=== PATIENT | female | born 1945 | race Two or more races ===

== ENCOUNTER → 2018-07-06 | Outpatient (CLI) | payer OTHER ==
[~2018-07-06] MED LIST: ACET500T68 PO; DOXY100C14 PO; PROAIR HFA8.5 GM INH
[2018-07-06 11:00] LABS: BILIRUBIN,URINE NEGATIVE (NEG); CLARITY,URINE CLEAR; COLOR,URINE YELLOW; NITRITE,URINE NEGATIVE (NEG); PROTEIN,URINE NEGATIVE (NEG-TRACE); UROBILINOGEN,URINE 0.2 mg/dL (0.2 mg/dL)
[2018-07-06 11:42] LABS: BACTERIA,URINE 0 /HPF (0-FEW); RBC,URINE 0 /HPF (0-2); SQUAMOUS EPITHELIAL CELL,UR FEW /LPF; WBC,URINE 0 /HPF (0-4)
== END | disposition home or self-care (01) ==
LOC: EDUNIT# 08:15 → SURGPAT 13:27
PROVIDERS: ATTEND Orthopaedic Surgery
DX: Z01.818 Encounter for other preprocedural examination (principal); M16.12 Unilateral primary osteoarthritis, left hip
CPT/HCPCS: 36415; 81001; 85651; 87641

== ENCOUNTER 2018-07-21 06:44 | Inpatient (IN) | payer OTHER ==
[~2018-07-21] VITALS: Ht 154.9 cm; Wt 46.7 kg
[~2018-07-21 06:44] MED LIST changes: +ACETAMINOPHEN 500 MG TABLET PO PRN; +KETOROLAC 30MG VIAL 30 MG, ROPIVacaine 0.5% PF 60 ML, EPINEPHrine 0.5 MG in IV NORMAL S... INT ART ONE; +TRANEXAMIC ACID 1,000 MG in IV NS 50ML -- 1ST BAG INJ ONE
[2018-07-21] MEDS ORDERED: fentaNYL PF VIAL 100 MCG/2 ML VIAL IV PRN ×3 (07:00→14:30)
[2018-07-21] MEDS ORDERED: ceFAZolin 2GM PREMIX 2 GM/50 ML BAG IV ONE (07:00)
[2018-07-21] MEDS ORDERED: LIDOCAINE 1% PF 2 ML VIAL. ID PRN (07:00)
[2018-07-21] MEDS ORDERED: ONDANSETRON PF 4 MG/2 ML VIAL. IV PRN (07:00)
[2018-07-21] MEDS ORDERED: PROCHLORPERAZINE 10 MG/2 ML VIAL. IV PRN ×2 (07:00→14:30)
[2018-07-21] MEDS ORDERED: CELECOXIB 100 MG CAPSULE. ONE (07:03)
[2018-07-21] MEDS ORDERED: CELE200C PO (07:21)
[2018-07-21] MEDS ORDERED: WARF-31 PO (07:21)
[2018-07-21] MEDS: IV RINGERS,LACTATED 1000ML 1,000 ML IV SCH ×2 (07:38→14:23)
[2018-07-21] MEDS ORDERED: TRANEXAMIC ACID 1,000 MG in IV NS 50ML -- 2ND BAG INJ ONE (08:00)
[2018-07-21] MEDS ORDERED: PROPOFOL 20 ML IV ONE (09:10)
[2018-07-21] MEDS ORDERED: fentaNYL PF VIAL 100 MCG/2 ML VIAL ONE ×2 (09:10→12:59)
[2018-07-21] MEDS ORDERED: DEXAMETHASONE SOD PHOS 20 MG/5 ML VIAL. ONE (09:10)
[2018-07-21] MEDS ORDERED: ROCURONIUM 50 MG/5 ML VIAL. ONE (09:10)
[2018-07-21] MEDS ORDERED: ONDANSETRON PF 4 MG/2 ML VIAL. ONE (09:10)
[2018-07-21] MEDS ORDERED: FAMOTIDINE 20 MG/2 ML VIAL ONE (09:10)
[2018-07-21] MEDS ORDERED: LIDOCAINE 2% PF Vial for OR 5 ML VIAL. ONE (09:10)
[2018-07-21] MEDS ORDERED: EPINEPHRINE INT ART ONE ×2 (11:00)
[2018-07-21] MEDS ORDERED: [UNRECOGNIZED DRUG - OTHER] INT ART ONE (11:00)
[2018-07-21] MEDS ORDERED: [UNRECOGNIZED DRUG - OTHER] INT ART ONE (11:00)
[2018-07-21] MEDS ORDERED: ROPIVACAINE 0.5% INT ART ONE ×2 (11:00)
[2018-07-21] MEDS ORDERED: KETOROLAC INT ART ONE ×2 (11:00)
[2018-07-21] MEDS ORDERED: 0.9 % SODIUM CHLORIDE 20 ML VIAL. IJ ONE (11:52)
[2018-07-21] MEDS ORDERED: ceFAZolin SODIUM 1 GM VIAL ONE (11:52)
[2018-07-21] MEDS ORDERED: ePHEDrine PF IN SALINE 50 MG/5 ML DISP.SYRIN IV ONE (12:03)
[2018-07-21] MEDS ORDERED: DESFLURANE > 120 MINUTES IH ONE (13:20)
[2018-07-21] MEDS ORDERED: NEOSTIGMINE METHYLSULFATE 5 MG/5 ML SYRINGE. ONE (13:20)
[2018-07-21] MEDS ORDERED: GLYCOPYRROLATE 1 MG/5 ML VIAL. ONE (13:21)
[2018-07-21] MEDS: fentaNYL PF VIAL 100 MCG/2 ML VIAL IV PRN ×4 (14:22→15:59)
[2018-07-21] MEDS ORDERED: ACETAMINOPHEN 325 MG TABLET. PO PRN (14:30)
[2018-07-21] MEDS ORDERED: CALCIUM CARBONATE 500 MG TAB.CHEW PO PRN (14:30)
[2018-07-21] MEDS ORDERED: ZOLPIDEM 5 MG TABLET. PO PRN (14:30)
[2018-07-21] MEDS ORDERED: MORPHINE SULFATE 4 MG/ML VIAL. IV PRN (14:30)
[2018-07-21] MEDS ORDERED: oxyCODONE/APAP 7.5/325 1 TAB TABLET PO PRN (14:30)
[2018-07-21] MEDS ORDERED: HYDROcodone/APAP 10/325 1 TAB TABLET PO PRN (14:30)
[2018-07-21] MEDS ORDERED: HYDROcodone/APAP 7.5/325MG 1 TAB TABLET PO PRN (14:30)
[2018-07-21] MEDS ORDERED: 0.9 % SODIUM CHLORIDE 10 ML DISP.SYRIN. IV PRN (14:30)
[2018-07-21] MEDS ORDERED: DEXTROSE 50% 25 GM / 50ML DISP.SYRIN. IV PRN (14:30)
[2018-07-21] MEDS ORDERED: traMADol 50 MG TABLET PO PRN (14:30)
[2018-07-21] MEDS ORDERED: MORPHINE SULFATE 2 MG/ML VIAL. IV PRN (14:30)
--- NOTE | 2018-07-21 14:50 | PDOC4 ---
Operative Note Operative Note Date of surgery: 07/21/2018 Preoperative diagnosis: Degenerative joint disease left hip Postoperative diagnosis: Same Operative procedure: Left total hip arthroplasty anterior approach Surgeon: Amna Assist: Agnes Anesthesia: Gen. Estimated blood loss: 150 mL Complications: None Specimens: Femoral head to pathology Operative indications: Patient is a 73-year-old female that was injured at work and underwent extensive nonoperative treatment including injection to her left hip joint which gave her almost complete relief for a limited period of time over a few weeks. He continued to have significant pain despite physical therapy activity modification and other nonoperative treatment. She now presents for operative evaluation and treatment following insurance approval for the recommended total hip arthroplasty. I had reviewed with her surgical plans and differences in approach as well as the possible complications of infection nerve or blood vessel damage leg length inequality instability premature wear or loosening medical or other anesthetic complications among others all her questions were answered consent was obtained and she agrees to proceed with operative evaluation and treatment Operative text: Patient was identified procedure verified patient placed in the supine position on the Beaman fracture table and after adequate amounts of general anesthesia were administered both legs were placed in traction boots and the left hip was prepped and draped in standard sterile fashion. After timeout was performed patient procedure identified and verified and incision was made just distal and lateral to the anterior superior iliac spine along the course of the tensor fascia issac muscle. Tensor fascia issac was brought laterally rectus femoris medially and circumflex vessels were coagulated with the aqua Mantis device. Hip capsule was exposed and split in a T fashion. Femoral neck cut was made under fluoroscopic guidance with a napkin ring of bone to use removal of the femoral head which was sized at a size 46. Reaming was carried out after removal of the contents of the fovea and debridement of any residual labrum with 46,48 and 50 reamers under fluoroscopic guidance the rim was touched lightly with a size 51 and a size 52 [employer] cluster hole hemispherical cup was seated in place under fluoroscopic guidance a single superior screw was placed and a standard 36 mm liner impacted into place. Femur was then placed in external rotation extension and adduction and femoral canal was prepared with successive size broaching up to a size 2 which provided excellent fit and stability. Trial fitting was carried out with a standard neck and +4 to restore leg length and stability as well as maintaining offset. All were checked under fluoroscopic guidance and excellent range of motion with good stability obtained throughout. Trial components were removed thorough irrigation carried out normal saline solution and a SMF standard offset size 2 stem was impacted into place with a +4 cobalt-chromium 36 mm head. Again equivalent stability leg length and offset were obtained fluoroscopically. Thorough irrigation again carried out normal saline solution hip capsule was repaired with #2 Ethibond suture Hemovac drain and pain catheter were placed in catheter mixture was injected throughout the subcutaneous area and hip joint capsule. Fascial closure carried out with #1 PDS strata fix suture subcutaneous closure with buried Vicryl suture skin closure with 3-0 Monocryl strata fix a bobby drain was placed patient was returned to recovery room in stable condition having tolerated procedure well. Agnes wayne was present for the procedure and assisted in prepping draping retraction and skin closure ASCENCION AMADOR MD Jul 21, 2018 14:50
--- NOTE | 2018-07-21 15:02 | RAD ---
Portable pelvis, 07/21/2018: HISTORY: Postop hip surgery A left total hip prosthesis is in place in satisfactory position. A surgical drain overlies the operative site. Old surgical clips are projected over the left side of the pelvis. There is no evidence of a retained surgical instrument, needle or radiopaque sponge on this single view. Electronically signed by: Jose Noble MD (07/21/2018 2:59 PM) [facility]
[2018-07-21] MEDS ORDERED: WARFARIN 7.5 MG TABLET. PO ONE (16:00)
[2018-07-21 16:15] VITALS: BP 102/48
[2018-07-21 16:30] VITALS: BP 102/56
[2018-07-21 16:45] VITALS: BP 110/60
[2018-07-21] MEDS ORDERED: ALBUTEROL SULFATE 2.5 MG/3 ML NEBU. NEB PRN (17:00)
[2018-07-21] MEDS ORDERED: NON FORMULARY ITEM (Albuterol Sulfate (Proair Hfa Inhaler) 1 PUFF) INH PRN (17:00)
[2018-07-21 17:15] VITALS: BP 112/59
[2018-07-21] MEDS: FERROUS SULFATE 325 MG TABLET. PO SCH (17:25)
[2018-07-21] MEDS: NICOTINE 21MG PATCH. TD SCH (17:26)
[2018-07-21] MEDS: KETOROLAC TROMETHAMINE 10 MG TABLET PO SCH ×2 (17:26→23:36)
[2018-07-21] MEDS: ceFAZolin SODIUM 1 GM in IV DEXTROSE 5% 50 ML IV SCH ×2 (17:27→23:36)
[2018-07-21] MEDS: IV DEXTROSE 5 %-0.45 % NACL 1,000 ML IV SCH (17:33)
[2018-07-21] MEDS: KETOROLAC 30MG VIAL 30 MG, BUPIVACAINE MPF 0.25% 20 ML, EPINEPHrine 0.5 MG in TOTAL VOL... INT ART SCH (18:09)
[2018-07-21 18:14] VITALS: BP 119/64
[2018-07-21] MEDS: oxyCODONE/APAP 5/325 1 TAB TABLET PO PRN (20:41)
[2018-07-21 23:00] VITALS: BP 126/71
[2018-07-22] MEDS: IV DEXTROSE 5 %-0.45 % NACL 1,000 ML IV SCH ×2 (02:00→11:04)
[2018-07-22 03:00] VITALS: BP 124/58
[2018-07-22 04:50] LABS: HEMATOCRIT 32.3 % (36.0-47.0); HEMOGLOBIN 11.2 g/dL (12.0-15.5); PROTHROMBIN TIME PATIENT 17.6 SEC (11.7-14.0)
[2018-07-22] MEDS: KETOROLAC 30MG VIAL 30 MG, BUPIVACAINE MPF 0.25% 20 ML, EPINEPHrine 0.5 MG in TOTAL VOL... INT ART SCH (05:30)
[2018-07-22] MEDS: ceFAZolin SODIUM 1 GM in IV DEXTROSE 5% 50 ML IV SCH (05:31)
[2018-07-22] MEDS: KETOROLAC TROMETHAMINE 10 MG TABLET PO SCH ×3 (05:31→18:08)
[2018-07-22] MEDS ORDERED: MAGNESIUM HYDROXIDE 2,400 MG/30 ML ORAL.SUSP. PO PRN (06:00)
[2018-07-22 06:30] VITALS: BP 100/51
--- NOTE | 2018-07-22 07:24 | PDOC ---
ORTHO PROGRESS NOTES Subjective Patient with no new complaints this morning. Post-op Day: 1 Procedure Left Total hip Arthroplasty Anterior Approach Vitals Vital Signs Date Time Temp Pulse Resp B/P (MAP) Pulse Ox O2 Delivery O2 Flow Rate FiO2 07/22/18 06:30 97.6 49 20 100/51 (67) 100 Nasal Cannula 2.0 97.6 Labs Laboratory Tests Test 07/21/18 07:15 07/22/18 03:55 Prothrombin Time 13.0 SEC (11.7-14.0) 17.6 SEC (11.7-14.0) Prothromb Time International Ratio 1.0 (0.8-1.1) 1.5 (0.8-1.1) Activated Partial Thromboplast Time 28 SEC (24-38) Hemoglobin 11.2 g/dL (12.0-15.5) Hematocrit 32.3 % (36.0-47.0) Mean Corpuscular Hemoglobin Concent 35 g/dL (31-37) Laboratory Tests Test 07/22/18 03:55 Hemoglobin 11.2 g/dL (12.0-15.5) Hematocrit 32.3 % (36.0-47.0) Mean Corpuscular Hemoglobin Concent 35 g/dL (31-37) Prothrombin Time 17.6 SEC (11.7-14.0) Prothromb Time International Ratio 1.5 (0.8-1.1) Assessment and Plan Patient on commode. N/V intact distally dressing dry and intact begin PT today KEITH QUEEN APRN Jul 22, 2018 07:24
[2018-07-22] MEDS: FERROUS SULFATE 325 MG TABLET. PO SCH ×2 (07:53→18:07)
[2018-07-22] MEDS: SENNOSIDES/DOCUSATE 8.6/50MG TABLET. PO SCH (07:53)
[2018-07-22] MEDS: oxyCODONE/APAP 5/325 1 TAB TABLET PO PRN (07:53)
[2018-07-22] MEDS: MULTIVITAMIN with MINERAL TABLET. PO SCH (07:53)
[2018-07-22] MEDS: ONDANSETRON ODT 4 MG TAB.RAPDIS. PO PRN (08:36)
[2018-07-22] MEDS: NICOTINE 21MG PATCH. TD SCH (12:48)
[2018-07-22] MEDS ORDERED: WARFARIN 1 MG TABLET. PO ONE (16:00)
[2018-07-22] MEDS ORDERED: BISACODYL 10 MG SUPP.RECT. PR PRN (16:00)
[2018-07-22 18:24] VITALS: BP 111/49
[2018-07-22] MEDS: traMADol 50 MG TABLET PO PRN (20:24)
--- NOTE | 2018-07-22 21:40 | PDOC ---
PROGRESS NOTES Subjective Subjective Problems overnight: Severe nausea this morning now better controlled, hip is sore and weak but getting around reasonably well Objective Vital Signs Vital Signs Date Time Temp Pulse Resp B/P (MAP) Pulse Ox O2 Delivery O2 Flow Rate FiO2 07/22/18 21:33 Room Air 07/22/18 20:24 20 95 07/22/18 18:24 97.6 68 111/49 (69) 97.6 07/22/18 06:30 2.0 Physical Exam Dressing clean dry intact leg lengths equal distal Minesh status intact Labs Laboratory Tests Test 07/21/18 07:15 07/22/18 03:55 Prothrombin Time 13.0 SEC (11.7-14.0) 17.6 SEC (11.7-14.0) Prothromb Time International Ratio 1.0 (0.8-1.1) 1.5 (0.8-1.1) Activated Partial Thromboplast Time 28 SEC (24-38) Hemoglobin 11.2 g/dL (12.0-15.5) Hematocrit 32.3 % (36.0-47.0) Mean Corpuscular Hemoglobin Concent 35 g/dL (31-37) Laboratory Tests Test 07/22/18 03:55 Hemoglobin 11.2 g/dL (12.0-15.5) Hematocrit 32.3 % (36.0-47.0) Mean Corpuscular Hemoglobin Concent 35 g/dL (31-37) Prothrombin Time 17.6 SEC (11.7-14.0) Prothromb Time International Ratio 1.5 (0.8-1.1) Assessment Assessment POD# [1], S/P [left total hip arthroplasty] Plan Plan of Care Zofran by mouth for nausea, continue mobilize weightbearing as tolerated no hip precautions Coumadin anticoagulation ASCENCION AMADOR MD Jul 22, 2018 21:40
[2018-07-23] MEDS: KETOROLAC TROMETHAMINE 10 MG TABLET PO SCH ×5 (00:11→23:52)
[2018-07-23 05:35] LABS: HEMATOCRIT 31.8 % (36.0-47.0); HEMOGLOBIN 10.9 g/dL (12.0-15.5)
[2018-07-23 05:45] LABS: PROTHROMBIN TIME PATIENT 25.5 SEC (11.7-14.0)
[2018-07-23 05:59] VITALS: BP 108/53
[2018-07-23] MEDS: MULTIVITAMIN with MINERAL TABLET. PO SCH (09:14)
[2018-07-23] MEDS: FERROUS SULFATE 325 MG TABLET. PO SCH ×2 (09:14→17:33)
[2018-07-23] MEDS: SENNOSIDES/DOCUSATE 8.6/50MG TABLET. PO SCH (09:14)
[2018-07-23] MEDS: NICOTINE 21MG PATCH. TD SCH (09:15)
[2018-07-23] MEDS: traMADol 50 MG TABLET PO PRN (09:21)
--- NOTE | 2018-07-23 11:55 | PDOC ---
PROGRESS NOTES Subjective Subjective Problems overnight: Nausea and now adequately resolved, doing well with physical therapy aside from expected hip flexor weakness Objective Vital Signs Vital Signs Date Time Temp Pulse Resp B/P (MAP) Pulse Ox O2 Delivery O2 Flow Rate FiO2 07/23/18 09:21 Room Air 07/23/18 05:59 98.0 70 16 108/53 (71) 93 98.0 07/22/18 06:30 2.0 Physical Exam On exam dressing clean dry intact leg lengths equal distal neurovascular status intact hip flexors are weak Labs Laboratory Tests Test 07/22/18 03:55 07/23/18 05:00 Hemoglobin 11.2 g/dL (12.0-15.5) 10.9 g/dL (12.0-15.5) Hematocrit 32.3 % (36.0-47.0) 31.8 % (36.0-47.0) Mean Corpuscular Hemoglobin Concent 35 g/dL (31-37) 34 g/dL (31-37) Prothrombin Time 17.6 SEC (11.7-14.0) 25.5 SEC (11.7-14.0) Prothromb Time International Ratio 1.5 (0.8-1.1) 2.4 (0.8-1.1) Laboratory Tests Test 07/23/18 05:00 Hemoglobin 10.9 g/dL (12.0-15.5) Hematocrit 31.8 % (36.0-47.0) Mean Corpuscular Hemoglobin Concent 34 g/dL (31-37) Prothrombin Time 25.5 SEC (11.7-14.0) Prothromb Time International Ratio 2.4 (0.8-1.1) Assessment Assessment POD# [2], S/P [left total hip arthroplasty] Plan Plan of Care Spoke with Worker's Compensation insurance claims analyst Georgie Albright [phone] ( [email or web address]) particularly about physical therapy closer to the patient for their convenience and [facility] has been tentatively evaluated phone number [phone] for outpatient physical therapy on discharge Continue PT weightbearing as tolerated no hip precautions due to anterior approach Likely DC tomorrow with outpatient physical therapy as above ASCENCION AMADOR MD Jul 23, 2018 11:55
[2018-07-23] MEDS: ONDANSETRON ODT 4 MG TAB.RAPDIS. PO PRN (12:49)
[2018-07-23 18:05] VITALS: BP 118/60
[2018-07-24] MEDS: traMADol 50 MG TABLET PO PRN (02:26)
[2018-07-24 04:40] LABS: HEMATOCRIT 30.9 % (36.0-47.0); HEMOGLOBIN 10.9 g/dL (12.0-15.5)
[2018-07-24 04:56] LABS: PROTHROMBIN TIME PATIENT 20.2 SEC (11.7-14.0)
[2018-07-24 05:31] VITALS: BP 99/45
[2018-07-24] MEDS: KETOROLAC TROMETHAMINE 10 MG TABLET PO SCH ×2 (05:34→12:38)
--- NOTE | 2018-07-24 08:11 | PATHOLOGY ---
[facility] Accession Number: [id number] . 01 Material submitted: . BONE LEFT HIP . 01 Clinician provided ICD-10: M25.552 . 01 Clinical history: . Left hip pain . 02 Diagnosis: Femoral head, left anterior total hip arthroplasty: - Advanced degenerative arthritis. . (JP:vjm;07/23/2018) [facility]/07/23/2018 . 02 Comment: There is no evidence of malignancy. . (JPM:vjm;07/23/2018) . 02 Electronically signed: . Kurt Hernández MD, Pathologist NPI- [id number] . 01 Gross description: . The specimen is received in formalin, labeled "Quynh Bacon, left hip", is a femoral head with a smooth resection margin measuring 4.5 x 4.2 x 3.4 cm. The articular surface is irregular, pitted with area of eburnation. Sectioning reveals thinning of the articular cartilage corresponding to the eburnation with underlying bone lincoln-red trabeculated. Crate Opener tissue is submitted in A1 after decalcification. ([facility]; 07/21/2018) [facility] . 02 Pathologist provided ICD-10: M16.12 . 02 CPT . 717324, [id number] Specimen Comment: A courtesy copy of this report has been sent to Specimen Comment: [phone]. Specimen Comment: Report sent to Performed at: 01 [facility] [address] [id number] MD Wesley Nath MD Phone: [phone] Performed at: 02 [facility] [address] [place], [place] [id number] MD Kurt Hernández MD Phone: [phone]
[2018-07-24] MEDS: NICOTINE 21MG PATCH. TD SCH (08:45)
[2018-07-24] MEDS: ONDANSETRON ODT 4 MG TAB.RAPDIS. PO PRN (08:45)
[2018-07-24] MEDS: MULTIVITAMIN with MINERAL TABLET. PO SCH (08:46)
[2018-07-24] MEDS: SENNOSIDES/DOCUSATE 8.6/50MG TABLET. PO SCH (08:46)
[2018-07-24] MEDS: FERROUS SULFATE 325 MG TABLET. PO SCH (08:46)
[2018-07-24] MEDS ORDERED: WARFARIN 1 MG TABLET. PO ONE (13:00)
[2018-07-24] MEDS ORDERED: WARF2TAB PO (13:14)
[2018-07-24] MEDS ORDERED: TRAM50TA PO (13:25)
[2018-07-24 15:09] VITALS: BP 100/52
--- NOTE | 2018-07-26 13:03 | DS ---
DATE OF DISCHARGE: 07/24/2018 PRINCIPAL DIAGNOSIS: Degenerative joint disease, left hip. PROCEDURE: Left total hip arthroplasty. DISPOSITION MEDICATIONS: Tramadol 50 mg p.o. q.4 hours p.r.n. pain, Coumadin as directed by anticoagulation clinic. DISCHARGE INSTRUCTIONS: Weightbearing as tolerated, no hip precautions due to anterior approach. Activity as tolerated. Follow up with Dr. Woo in 2 weeks. DISPOSITION: Home with outpatient physical therapy. BRIEF DESCRIPTION OF HOSPITAL COURSE: The patient underwent uncomplicated anterior approach total hip arthroplasty, did very well postoperatively and was discharged to home in stable condition, medically stable. ASCENCION WOO MD DR: RILEY/leena JOB#: [id number] / [id number]
== END 2018-07-24 16:25 | disposition home or self-care (01) | DRG 470 ==
LOC: OPSVCIP 06:44 → EDUNIT# 10:10 → 4 SOUTHEST 16:18
PROVIDERS: ADMIT Orthopaedic Surgery; ATTEND Orthopaedic Surgery
PROC: 0SRB0JZ Replacement of Left Hip Joint with Synthetic Substitute, Open Approach (ICD-10-PCS; principal; 2018-07-21 10:10)
DX: M16.12 Unilateral primary osteoarthritis, left hip (principal)
CPT/HCPCS: 36415; 72170; 76000; 85014; 85018; 85610; 85730; 86850; 86900; 86901; 88304; 88311; 99406; A7015; C1887; J0171; J0690; J0780; J1100; J1885; J2001; J2405; J2704; J2710; J2795; J3010; J3490; J7030; J7120; Q0162; 97116; 97150; 97530; 97535

== ENCOUNTER → 2021-12-24 | Outpatient (CLI) | payer OTHER ==
[~2021-12-24] MED LIST changes: -ACETAMINOPHEN 500 MG TABLET PO PRN; +ALBU2.5V8 INH; +CELE200C PO; +DOXY-181 PO; -DOXY100C14 PO; -KETOROLAC 30MG VIAL 30 MG, ROPIVacaine 0.5% PF 60 ML, EPINEPHrine 0.5 MG in IV NORMAL S... INT ART ONE; -PROAIR HFA8.5 GM INH; +TRAM50TA PO; -TRANEXAMIC ACID 1,000 MG in IV NS 50ML -- 1ST BAG INJ ONE; +WARF-31 PO; +WARF2TAB PO
--- NOTE | 2021-12-24 15:34 | RAD ---
EXAM: Triple phase bone scintigraphy. HISTORY: Left hip pain. COMPARISON: Plain radiographs, 12/05/2021. FINDINGS: 25 mCi Tc-99m MDP was administered intravenously. Scintigraphic images show less were obtai cait in angiographic, immediate and delayed phases. There is a photopenic defect at the site of the left total hip arthroplasty. There is no abnormal ang iographic, blood pool or delayed uptake about the prosthesis, or elsewhere. IMPRESSION: 1. No abnormal uptake about the left hip prosthesis or elsewhere. Electronically signed by: Latisha Amado MD (12/24/2021 3:31 PM) [id number]
== END ==
LOC: NM 10:55
PROVIDERS: ATTEND Orthopaedic Surgery
DX: M25.552 Pain in left hip (principal); Z96.642 Presence of left artificial hip joint
CPT/HCPCS: 78315; A9503